=== PATIENT | male | born 1990 | race African-American/Black ===

== ENCOUNTER 2020-03-21 15:20 | Emergency (ER) | payer OTHER ==
[~2020-03-21] VITALS: Ht 172.7 cm; Wt 96.7 kg
[2020-03-21] MEDS ORDERED: IBUPROFEN 600 MG TAB PO STA (16:23)
[2020-03-21] MEDS ORDERED: IBUPROFEN400 MG PO (18:19)
[2020-03-21] MEDS ORDERED: CYCLOBENZAPRINE10 MG PO (18:21)
[2020-03-21] MEDS ORDERED: TYLENOL # 31 EA PO (18:22)
[2020-03-21 18:47] VITALS: BP 159/80
== END 2020-03-21 18:33 | disposition home or self-care (01) ==
LOC: FSED 16:11
DX: M54.5 Low back pain (principal); S33.5XXA Sprain of ligaments of lumbar spine, initial encounter; S23.3XXA Sprain of ligaments of thoracic spine, initial encounter; M25.552 Pain in left hip; V43.62XA Car passenger injured in collision with other type car in traffic accident, initial encounter; Y92.488 Other paved roadways as the place of occurrence of the external cause; M79.5 Residual foreign body in soft tissue; F17.210 Nicotine dependence, cigarettes, uncomplicated
CPT/HCPCS: 72128; 72131; 99283

== ENCOUNTER 2020-06-12 03:31 | Emergency (ER) | payer SELFPAY ==
[~2020-06-12] VITALS: Ht 170.2 cm; Wt 101.2 kg
[~2020-06-12 03:31] MED LIST: CYCLOBENZAPRINE10 MG PO; IBUPROFEN400 MG PO; TYLENOL # 31 EA PO
[2020-06-12] MEDS ORDERED: CYCLOBENZAPRINE HCL 10 MG TAB ONE (04:12)
[2020-06-12] MEDS ORDERED: PREDNISONE 20 MG TAB ONE (04:12)
[2020-06-12] MEDS ORDERED: HYDROCODONE/APAP 5MG-325MG TAB ONE (04:13)
[2020-06-12] MEDS ORDERED: HYDROCODONE/APAP 5MG-325MG TAB PO ONE (04:15)
[2020-06-12] MEDS ORDERED: PREDNISONE 20 MG TAB PO ONE (04:15)
[2020-06-12] MEDS ORDERED: CYCLOBENZAPRINE HCL 10 MG TAB PO ONE (04:15)
[2020-06-12] MEDS ORDERED: HYDROCODON-ACE1 EA12 PO (04:19)
[2020-06-12] MEDS ORDERED: CYCLOBENZAPRINE10 MG PO (04:20)
[2020-06-12] MEDS ORDERED: PREDNISONE20 MG PO (04:22)
[2020-06-12] MEDS ORDERED: PREDNISONE50 MG PO (04:22)
== END 2020-06-12 04:31 | disposition home or self-care (01) ==
LOC: FSED 03:47
DX: M54.16 Radiculopathy, lumbar region (principal); M54.6 Pain in thoracic spine; M62.830 Muscle spasm of back; M60.28 Foreign body granuloma of soft tissue, not elsewhere classified, other site; F17.210 Nicotine dependence, cigarettes, uncomplicated
CPT/HCPCS: 99283; J7512